=== PATIENT | female | born 1985 | race Asian ===

== ENCOUNTER 2017-04-24 11:35 | Emergency (ER) | payer OTHER ==
[2017-04-24 11:49] VITALS: BP 123/73
--- NOTE | 2017-04-24 12:16 | ED Physician Documentation ---
PD HPI URI - Stated complaint Stated Complaint: COUGH/CONGESTION - Chief complaint Chief Complaint: Resp - History obtained from History obtained from: Patient - History of Present Illness Timing - onset: Other (31-year-old woman who has 2 main complaints, one is that for the last 2 weeks she has had increasingly productive cough green sputum and right-sided chest pain with coughing as well as mild shortness of breath and chills. She really has no other URI symptoms. She is a smoker. She was counseled to quit. Secondly over the last 3 weeks she has had what seems like and breast tenderness on the right only. She doubts the possibility of , she is status post remote tubal ligation and endometrial ablation , but she does have a history of ectopic .) Review of Systems Constitutional: denies: Fever, Chills Throat: denies: Dental pain / toothache, Sore throat Cardiac: reports: Chest pain / pressure. denies: Palpitations, Pedal edema, Calf pain Respiratory: reports: Dyspnea, Cough. 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 - Past Surgical History Past Surgical History: Yes /SACK KEEPER: section, Tubal ligation - Present Medications Home Medications: Ambulatory Orders Medication Instructions Recorded Confirmed Albuterol Sulfate [Proventil Hfa 1 - 2 puffs IH Q4H PRN #1 04/24/17 Inhaler] [email or web address] Azithromycin [Zithromax] 250 mg PO DAILY #6 tablet 04/24/17 guaiFENesin/CODEINE [Robitussin AC] 5 - 10 ml PO Q6H PRN #120 ml 04/24/17 predniSONE [Deltasone] 60 mg PO DAILY 5 Days 04/24/17 - Allergies Allergies/Adverse Reactions: Allergies Allergy/AdvReac Type Severity Reaction Status Date / Time No Known Drug Allergies Allergy Verified 04/24/17 12:00 - Social History Does the pt smoke?: Yes Smoking Status: Current every day smoker Does the pt drink ETOH?: Yes Does the pt have substance abuse?: No - Immunizations Immunizations are current?: Yes - POLST Patient has POLST: No PD ED PE NORMAL - Vitals Vital signs reviewed: Yes - General General: Alert and oriented X 3, No acute distress - HEENT HEENT: PERRL, EOMI, Ears normal, Pharynx benign - Neck Neck: Supple, no meningeal sign, No bony TTP - Cardiac Cardiac: RRR, No murmur - Respiratory Respiratory: No respiratory distress, Other (Mild expiratory wheezes) - Abdomen Abdomen: Non tender - Derm Derm: Other (Breast exam deferred, [place] - Neuro Neuro: Alert and oriented X 3, Normal speech - Psych Psych: Normal mood, Normal affect Results - Vitals Vitals: Vital Signs - 24 hr 04/24/17 11:47 Temperature 36.6 C Heart Rate 59 L Respiratory 18 Rate Blood Pressure 123/73 O2 Saturation 100 Oxygen O2 Source Room air - Labs Labs: Laboratory Tests 04/24/17 12:29 Serum HCG, Qual NEGATIVE PD MEDICAL DECISION MAKING - ED course ED course: 1. She has acute bronchitis, does fit IDSA criteria for treatment for same with antibiotics given greater than 2 weeks of symptoms and a biphasic illness with potential underlying lung disease with smoking. 2. She has from the right breast, her main worry today is that of , states that urine test do not work on her and a blood test was done and negative. She declined further workup for this year but understands she needs to follow-up with her primary care physician for further investigation of this. Departure - Departure Disposition: 01 Home, Self Care Clinical Impression: Bronchitis Condition: Good Record reviewed to determine appropriate education?: Yes Instructions: ED Bronchitis Asthmatic Prescriptions: predniSONE [Deltasone] 60 mg PO DAILY 5 Days Albuterol Sulfate [Proventil Hfa Inhaler] 1 - 2 puffs IH Q4H PRN #1 [email or web address] PRN Reason: Cough guaiFENesin/CODEINE [Robitussin AC] 5 - 10 ml PO Q6H PRN #120 ml PRN Reason: Cough Azithromycin [Zithromax] 250 mg PO DAILY #6 tablet Comments: [place] further testing on your breast. Return if worse or if new symptoms develop. Discharge Date/Time: 04/24/17 13:08
== END 2017-04-24 13:08 | disposition home or self-care (01) ==
LOC: ED 11:35
DX: J20.9 Acute bronchitis, unspecified (principal); N64.3 Galactorrhea not associated with childbirth; N64.4 Mastodynia; F17.200 Nicotine dependence, unspecified, uncomplicated; Z98.51 Tubal ligation status; Z87.42 Personal history of other diseases of the female genital tract; Z71.6 Tobacco abuse counseling
CPT/HCPCS: 36415; 84703; 99281; 99283

== ENCOUNTER 2017-08-07 17:38 | Emergency (ER) | payer OTHER ==
[2017-08-07 17:44] VITALS: BP 113/75
[2017-08-07] MEDS ORDERED: cephALEXin 250 MG CAPSULE PO STA (17:58)
[2017-08-07] MEDS ORDERED: SULFAMETH/TRIMETH DS 800/160 MG TABLET PO STA (17:58)
--- NOTE | 2017-08-07 18:02 | ED Physician Documentation ---
History of Present Illness - Stated complaint Stated Complaint: ARMPIT BUMP - Chief complaint Chief Complaint: Wound - History obtained from History obtained from: Patient - History of Present Illness Timing: Yesterday Pain level max: 4 Pain level now: 4 - Additonal information Additional information: Patient is a 32-year-old female who presents to the emergency department with left axillary swelling. Has had an abscess here in the past. Does not recall any injury. Worse with palpation, nothing makes it better. No fevers. No drainage. Review of Systems Constitutional: denies: Fever, Chills GI: denies: Vomiting : reports: Control (Tubal ligation). 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: Yes Smoking Status: Current every day smoker Does the pt drink ETOH?: Yes Does the pt have substance abuse?: No - Immunizations Immunizations are current?: Yes - POLST Patient has POLST: No PD ED PE NORMAL - Vitals Vital signs reviewed: Yes - General General: Alert and oriented X 3, No acute distress - Derm Derm: Warm and dry - Extremities Extremities: Other (L axilla - 1x1cm indurated area. no fluctuance or pointing. ) - Neuro Neuro: Alert and oriented X 3 Results - Vitals Vitals: Vital Signs - 24 hr 08/07/17 17:42 Temperature 36.6 C Heart Rate 79 Respiratory 16 Rate Blood Pressure 113/75 O2 Saturation 98 Oxygen O2 Source Room air PD MEDICAL DECISION MAKING - ED course Complexity details: considered differential, d/w patient ED course: Patient is a 32-year-old female who presents to the emergency department with what appears to be an early abscess to the left axilla. Ultrasound was used and there is no drainable abscess at this point, just indurated tissue. Will trial on antibiotics and see how she progresses. Patient counseled regarding signs and symptoms for which I believe and urgent re-evaluation would be necessary. Patient with good understanding of and agreement to plan and is comfortable going home at this time This document was made in part using voice recognition software. While efforts are made to proofread this document, sound alike and grammatical errors may occur. Departure - Departure Disposition: Home, Self Care Clinical Impression: Abscess Condition: Good Instructions: ED Staph Infec Abx Tx Only Follow-Up: your,doctor in 3 days for recheck [Other] Prescriptions: Cephalexin [Keflex] 500 mg PO Q6H #28 capsule Sulfamethox/Trimeth 800/160 [Bactrim Ds 800/160] 1 each PO BID #14 tablet Comments: Take all antibiotics until gone. Return if you worsen. There is a chance that this may worsen and need to be drained, so if it is worsening return to have the abscess drained. There is no abscess currently to drain on ultrasound tonight. Discharge Date/Time: 08/07/17 18:12
[2017-08-07] MEDS ORDERED: cephALEXin 250 MG CAPSULE PO ONE (18:10)
[2017-08-07] MEDS ORDERED: SULFAMETH/TRIMETH DS 800/160 MG TABLET PO ONE (18:10)
== END 2017-08-07 18:12 | disposition home or self-care (01) ==
LOC: ED 17:38
DX: L02.412 Cutaneous abscess of left axilla (principal)
CPT/HCPCS: 99283; A9270